=== PATIENT | female | born 1980 | race American Indian/Alaskan Native ===

== ENCOUNTER 2016-12-29 04:53 | Inpatient (IN) | payer MEDICAID ==
[2016-12-29] MEDS ORDERED: LACTATED RINGERS 1,000 ML IV SCH (07:00)
[2016-12-29] MEDS ORDERED: PITOCin/NS 30 UNIT/500ML 30 UNITS/500 ML BAG IV SCH ×2 (07:00)
[2016-12-29] MEDS ORDERED: PITOCin/NS 20 UNIT/1000ML DRIP 20 UNITS/1,000 ML BAG IV SCH (07:00)
--- NOTE | 2016-12-29 07:14 | History and Physical Report ---
History of Present Illness Date of examination: 12/29/16 Date of admission: 12/29/16 06:55 Chief complaint: 36 yo at 40wk + 4d who came in c/o SROM--she was nitrazine neg but was found to have LUCY of 2 on u/s so admitted for induction due to oligohydramnios at post dates. MBT O pos, Rubella IM, GBS neg History of present illness: Remainder of H&P from [facility] and confirmed today OB Intake Ethnicity: Mormon: NONE Occupation: Container Washer Father of baby: Oz FAJARDO contact #: [phone] Vital Signs Height: 64 in. Weight (lb): 182 BMI: 31.3 Pre- Weight: 170 BP: 102/ 80 mm Hg Ur. Protein: Negative Ur. Glucose: Negative Chief Complaint/Current Status: pt presents c/o missed period, N &V ...................................................................Jhoana Ash July 28, 2016 2:34 PM Last pap 02/2015 WNL per pt...NFerrus Menstrual History Regularity: regular Menses every: 28 days Duration: 5 LMP: 03/2016 LMP reliability: month known LMP character: normal test type: urine test Date: 07/28/2016 BC at conception: none Planned ? no EDC Calculations EDC Confirmation: 12/25/2016 Gestational Age: 18 4/7 weeks Past History : 5 Term Births: 4 Premature Births: 0 Living Children: 4 Para: 4 Mult. Births: 0 Prev : 0 Prev. attempt? 0 Aborta: 0 Elect. Ab: 0 Spont. Ab: 0 Ectopics: 0 # 1 Delivery date: 1998 Weeks Gestation: term labor: no Delivery type: Delivery location: [place] [facility] Sex: Female weight: 6#14 Comments: no complications # 2 Delivery date: 2000 Weeks Gestation: 36 labor: yes Delivery type: Delivery location: [place] Sex: Male weight: 5#6 Comments: PPROM @ 36wks # 3 Delivery date: 2003 Weeks Gestation: term labor: no Delivery type: Delivery location: [place] [facility] Sex: Male weight: 7#4 Comments: no complications # 4 Delivery date: 2012 Weeks Gestation: term labor: no Delivery type: Delivery location: [facility] [place] Sex: Male weight: 6#8 Comments: no complications Past Medical History: Abnormal Pap Smear - HPV, several years ago - unsure of exact year Asthma - managed by ED when she has attack Past Surgical History: Appendectomy - 3rd grade Past Medical History Surgery (Non-ob gyn physician assistant): Appendectomy - 3rd grade Abnormal PAP: positive, +HPV JAVIER Exposure: negative Infertility: negative Uterine Anomaly: negative Uterine Surgery (not C/S): negative Other Gynecologic Problems: negative Family Hx: Mother and MGM - htn no known family hx [place] Social Hx: single Works as power project manager at [employer] No ETOH/Drugs/Smoking Infection History Hx of STD: HPV HIV Risk Eval: no Hepatitis B Risk Eval: low risk Personal hx. of genital herpes: no Partner hx. of genital herpes: no Rash, Viral, or Febrile illness since last LMP? no Varicella/Chicken Pox Status: Previous Disease Genetic History Congenital Heart Defect: Mom: no Dad: no Rubio Disease: Mom: no Dad: no Thalassemia Mom: no Dad: no Neural Tube Defect Mom: no Dad: no Down's Syndrome Mom: no Dad: no Robby-Sachs Mom: no Dad: no Sickle Cell Disease/Trait Mom: no Dad: no Hemophilia Mom: no Dad: no Muscular Dystrophy Mom: no Dad: no Cystic Fibrosis Mom: no Dad: no [place] Chorea Mom: no Dad: no Mental Retardation Mom: no Dad: no Fragile X Mom: no Dad: no Other Genetic/Chromosomal Disorder Mom: no Dad: no Child w/other defect Mom: no Dad: no Enviromental Exposures Xray Exposure: no Medication, drug, or alcohol use since LMP: no Chemical/Other Exposure: no Exposure to Cat Liter: no Hx of Parvovirus (Fifth Disease): no Occupational Exposure to Children: none Current Allergies (reviewed today): No known allergies Laboratory Results Routine Urinalysis Leukocytes: negative Nitrite: negative Urobilinogen: negative Protein: Negative Blood: negative Ketone: negative Bilirubin: negative Glucose: Negative Urine HCG: positive Review of Systems General Denies fever, chills, sweats, anorexia, fatigue, weakness, malaise, weight loss and sleep disorder. Denies nausea, vomiting, headache, swelling of legs, abdominal pain, vaginal discharge, vaginal bleeding and contractions. Denies vaginal discharge, incontinence, dysuria, hematuria, urinary frequency, amenorrhea, menorrhagia, abnormal vaginal bleeding, pelvic pain, genital sores, decreased libido, painful periods, painful sex, urinary urgency, hot flashes, vaginal dryness, vaginal itching and vaginal odor. CV Denies chest pains, palpitations, syncope, dyspnea on exertion, orthopnea, PND and peripheral edema. Resp Denies cough, dyspnea at rest, excessive sputum, hemoptysis, wheezing and pleurisy. GI Denies nausea, vomiting, diarrhea, constipation, change in bowel habits, abdominal pain, melena, hematochezia, jaundice, gas/bloating, indigestion/ heartburn, dysphagia and odynophagia. Endo Denies cold intolerance, heat intolerance, polydipsia, polyphagia, polyuria and unusual weight change. Breast Denies left breast lump, right breast lump, nipple discharge, bloody discharge from nipple, breast pain, abnormal mammogram and breast enlargement. MS Denies back pain, joint pain, joint swelling, muscle cramps, muscle weakness, stiffness, arthritis, sciatica, restless legs, leg pain at night and leg pain with exertion. Derm Denies rash, itching, dryness and suspicious lesions. Neuro Denies paralysis, paresthesias, headache, seizures, tremors, vertigo, transient blindness, frequent falls, frequent headaches and difficulty walking. Psych Denies depression, anxiety, irritability and mood swings. Eyes Denies blurring, diplopia, irritation, discharge, vision loss, eye pain and photophobia. ENT Denies earache, ear discharge, tinnitus, decreased hearing, nasal congestion, nosebleeds, sore throat and hoarseness. Allergy Denies urticaria, allergic rash, hay fever and recurrent infections. Heme Denies abnormal bruising, bleeding and enlarged lymph nodes. 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 Vulva/Vagina: No lesions, normal BUS, normal rugae Cervix: No lesions; no cervical motion tenderness Uterus: normal size and position, midline, mobile Fundal Ht: 18wks FHT: + activity: + Adnexae: no masses or tenderness Rectovaginal: no masses or tenderness Flowsheet View for Follow-up Visit Estimated weeks of gestation: 18 4/7 Weight: 182 Blood pressure: 102 / 80 Urine protein: Negative Urine glucose: Negative Urine nitrite: negative Fundal height: 18wks FHR: + Risk Factors: Smoked Tobacco Use: Never smoker Passive smoke exposure: no Drug use: no HIV high-risk behavior: no Caffeine use: 0 drinks per day Alcohol use: no Exercise: no Seatbelt use: preg-primary substance abuse counselor % Family History Risk Factors: Family History of OK in females < 65 years old: no Family History of OK in males < 55 years old: no Dietary Counseling: pn yes Past History - Obstetrical History : 6 Medications and Allergies Allergies Allergy/AdvReac Type Severity Reaction Status Date / Time No Known Allergies Allergy Unverified 12/29/16 05:22 Active Meds: Active Medications Butorphanol Tartrate (Stadol) 2 mg IV Q2H PRN PRN Reason: Pain , Severe (7-10) Ephedrine Sulfate (Ephedrine Sulfate) 10 mg IV Q2M PRN PRN Reason: Hypotension Stop: 12/29/16 07:03 Fentanyl (Sublimaze) 100 mcg IV Q2H PRN PRN Reason: Labor Pain Lactated Ringer's (Lactated Ringers) 1,000 mls @ 125 mls/hr IV DIRECT NAJMA Oxytocin/Sodium Chloride (Pitocin/Ns 20 Unit/1000ml Drip) 20 units in 1,000 mls @ 125 mls/hr IV DIRECT NAJMA Oxytocin/Sodium Chloride (Pitocin/Ns 30 Unit/500ml) 30 units in 500 mls @ 1 mls /hr IV TITR NAJMA; 1 MILLIUNITS/MIN PRN Reason: Protocol Oxytocin/Sodium Chloride (Pitocin/Ns 30 Unit/500ml) 30 units in 500 mls @ 0 mls /hr IV TITR NAJMA; Per Protocol PRN Reason: Protocol Lidocaine (Xylocaine 2%) 20 ml INFILTRATI ONCE ONE Stop: 12/29/16 06:59 Mineral Oil (Mineral Oil) 30 ml PO QHS PRN PRN Reason: Constipation Naloxone HCl (Narcan 0.4 Mg/1 Ml) 0.1 mg IV Q2MIN PRN PRN Reason: Res Rate </= 8 or 02 SAT < 92% Ondansetron HCl (Zofran) 4 mg IV Q8H PRN PRN Reason: Nausea And Vomiting Terbutaline Sulfate (Brethine) 0.25 mg SUB-Q ONCE PRN PRN Reason: Hyperstimulation/Hypertonicity Stop: 12/29/16 06:59 Terbutaline Sulfate (Brethine) 0.25 mg IVP ONCE PRN PRN Reason: Hyperstimulation/Hypertonicity Stop: 12/29/16 06:59 - Vital Signs Vital signs: Vital Signs Pulse BP 85 120/85 12/29/16 05:10 12/29/16 05:10 Temp Pulse Resp BP Pulse Ox 97.8 F 78 18 118/84 12/29/16 06:20 12/29/16 07:09 12/29/16 06:20 12/29/16 07:09 Results All other labs normal.
[2016-12-29] MEDS ORDERED: SUBLIMAZE IV PRN (07:30)
[2016-12-29] MEDS ORDERED: STADOL IV PRN (07:30)
[2016-12-29] MEDS ORDERED: MINERAL OIL PO PRN (07:30)
--- NOTE | 2016-12-29 07:48 | Ultrasound Report ---
History: LUCY and EFW Findings: Gestation: Single Position: Cephalic Amniotic Fluid: LUCY = 2.7 cm Placenta: Fundal Placental Grade: 2 Heart Rate: 135 BPM Cervical length: 2.8 cm (Normal > 3 cm) Anatomic survey not done. BPD: 8.4 cm = 34 w 0 d HC: 31.3 cm = 35 w 1 d AC: 29.9 cm = 34 w 0 d FL: 7.2 cm = 37 w 0 d HC/AC Ratio: 1.05 Cephalic Index: 80 Estimated Weight: 2550 grams LMP: 03/20/16 Clinical age = 40 w 4 d EDC: 12/25/16 US Gest. Age = 35 w 0 d EDC: 02/02/17
[2016-12-29] MEDS ORDERED: BRETHINE IVP PRN (08:00)
[2016-12-29] MEDS ORDERED: ZOFRAN IV PRN (08:00)
[2016-12-29] MEDS ORDERED: NARCAN 0.4 MG/1 ML IV PRN (08:00)
[2016-12-29] MEDS ORDERED: BRETHINE SUB-Q PRN (08:00)
[2016-12-29] MEDS ORDERED: ePHEDrine SULFATE IV PRN ×2 (08:00→10:30)
[2016-12-29 08:02] LABS: Hematocrit 34.9 % (30.3-42.9); Hemoglobin 11.6 gm/dl (10.1-14.3); Mean Corpuscular HGB Conc 33 % (30-34); Mean Corpuscular Hemoglobin 29 pg (28-32); Mean Corpuscular Volume 88 fl (79-97); Platelet Count 146 K/mm3 (140-440); Red Blood Count 3.95 M/mm3 (3.65-5.03); Red Cell Distribution Width 15.1 % (13.2-15.2); White Blood Count 7.3 K/mm3 (4.5-11.0)
[2016-12-29] MEDS ORDERED: XYLOCAINE 2% INFILTRATI ONE (09:00)
--- NOTE | 2016-12-29 10:05 | Anesthesia Consultation ---
Anesthesia Consult and Med Hx Date of service: 12/29/16 - Airway Anesthetic Teeth Evaluation: Good ROM Head & Neck: Adequate Mental/Hyoid Distance: Adequate Mallampati Class: Class II Intubation Access Assessment: Probably Good - Pre-Operative Health Status ASA Pre-Surgery Classification: ASA2, Emergency Proposed Anesthetic Plan: Epidural, Spinal - Pulmonary Hx Asthma: Yes COPD: No Hx Pneumonia: No - Cardiovascular System Hx Hypertension: No - Central Nervous System Hx Seizures: No Hx Psychiatric Problems: No - Endocrine Hx Renal Disease: No Hx End Stage Renal Disease: No Hx Hypothyroidism: No Hx Hyperthyroidism: No - Hematic Hx Anemia: No Hx Sickle Cell Disease: No - Other Systems Hx Alcohol Use: No
[2016-12-29] MEDS ORDERED: NARCAN 2 MG/2 ML IV PRN (10:30)
[2016-12-29] MEDS ORDERED: fentaNYL-BUPIV 2 MCG/ML-0.125% 200 MCG/100 ML BAG EPIDURAL SCH (11:00)
[2016-12-29] MEDS ORDERED: TYLENOL PO PRN (12:57)
[2016-12-29] MEDS ORDERED: DULCOLAX PR PRN (12:57)
[2016-12-29] MEDS ORDERED: TUCKS PAD TP PRN (12:57)
[2016-12-29] MEDS ORDERED: MILK OF MAGNESIA PO PRN (12:57)
[2016-12-29] MEDS ORDERED: LANSINOH TP PRN (12:57)
[2016-12-29] MEDS ORDERED: PHENERGAN PO PRN (12:57)
[2016-12-29] MEDS ORDERED: BENADRYL PO PRN (12:57)
[2016-12-29] MEDS ORDERED: SODIUM CHLORIDE FLUSH SYRINGE 10 ML IV SCH (13:00)
--- NOTE | 2016-12-29 13:03 | Procedure Note ---
OB Delivery Note - Delivery Date of Delivery: 12/29/16 [employer] T[employer]: RADHA GOETZ Estimated blood loss: 300cc - Vaginal Delivery presentation: vertex Delivery position: OA Delivery induction: none Delivery augmentation: pitocin Delivery monitor: external FHT, external uterine Route of delivery: Delivery placenta: spontaneous Delivery cord: 3 umbilical vessels Episiotomy: none Delivery laceration: none Anesthesia: epidural Delivery comments: live born female over intact perineum Baby skin to skin Cord blood obtained Placenta and membrane del complete and intact, 3 vessel cord. 8/9 , EBL 300, Wgt 5-13 Pit IVFs Mom and baby remain LDR stable. - Infant A at 1 minute: 6 at 5 minutes: 9 Gender: Female (wgt 5-13)
[2016-12-29] MEDS: MOTRIN PO SCH ×2 (15:02→22:14)
[2016-12-29] MEDS: NORCO 5/325 PO PRN ×2 (16:36→22:14)
[2016-12-29] MEDS: COLACE PO SCH (22:14)
[2016-12-30 00:36] LABS: Hematocrit 35.4 % (30.3-42.9)
[2016-12-30] MEDS: MOTRIN PO SCH ×3 (04:33→13:09)
[2016-12-30] MEDS: NORCO 5/325 PO PRN (04:33)
[2016-12-30] MEDS ORDERED: BOOSTRIX IM ONE (06:00)
--- NOTE | 2016-12-30 06:02 | Discharge Summary ---
Providers - Providers Date of Admission: 12/29/16 06:55 Date of discharge: 12/30/16 (pt desires d/c today) Attending physician: AIMEE RIOS Primary care physician: AIMEE RIOS Hospitalization Reason for admission: active labor Delivery: Episiotomy: none Laceration: none Incision: normal Other procedures: none complications: none Discharge diagnosis: IUP at term delivered [place] baby: female Hospital course: uncomplicated vaginal delivery Pt w/o complaint VSS FF below umb Lochia small Perineum intact H&H stable Doing well s/p vag delivery P: d/c today with instructions RTO 4 weeks PP care. Condition at discharge: Good Disposition: DC-01 TO HOME OR SELFCARE - Discharge Diagnoses (1) Spontaneous vaginal delivery Status: Acute Comment: rto 4 weeks PP care Plan - Provider Discharge Summary Activity: routine, no sex for 6 weeks, no heavy lifting 4 weeks, no strenuous exercise Diet: routine Instructions: routine Additional instructions: [] Smoking cessation referral if applicable(refer to patient education folder for contact #) [] Refer to [facility] Booklet Call your doctor immediately for: * Fever > 100.5 * Heavy vaginal bleeding ( >1 pad per hour) * Severe persistent headache * Shortness of breath * Reddened, hot, painful area to leg or breast * Drainage or odor from incision. * Keep incision clean and dry at all times and follow doctor's instructions regarding bathing/showering - Follow up plan Follow up: AIMEE RIOS MD [Primary Care Provider] - 01/28/17 (Congratulations! please call [phone] to schedule your visit in 4 weeks. Take medications as prescribed. Call with concerns.)
[2016-12-30] MEDS ORDERED: PRENATAL VITAMIN PO SCH (10:00)
[2016-12-30] MEDS: COLACE PO SCH (10:43)
[2016-12-30] MEDS ORDERED: Fluarix Quad 2017-2018(36 MOS+ IM ONE (12:00)
[2016-12-30] MEDS ORDERED: M-M-R II VACCINE SUB-Q ONE (12:57)
[2016-12-30 18:37] VITALS: BP 125/88
== END 2016-12-30 17:15 | disposition home or self-care (01) | DRG 775 ==
LOC: TRG 04:53 → LD 06:55 → TRG 06:55 → OB 14:24
PROVIDERS: ADMIT Obstetrics & Gynecology; ATTEND Obstetrics & Gynecology
PROC: 10E0XZZ Delivery of Products of Conception, External Approach (ICD-10-PCS; principal; 2016-12-29)
PROC: 3E0R3BZ Introduction of Anesthetic Agent into Spinal Canal, Percutaneous Approach (ICD-10-PCS; 2016-12-29)
PROC: 00HU33Z Insertion of Infusion Device into Spinal Canal, Percutaneous Approach (ICD-10-PCS; 2016-12-29)
PROC: 3E0234Z Introduction of Serum, Toxoid and Vaccine into Muscle, Percutaneous Approach (ICD-10-PCS; 2016-12-30)
DX: O41.03X0 Oligohydramnios, third trimester, not applicable or unspecified (principal); O99.52 Diseases of the respiratory system complicating childbirth; J45.909 Unspecified asthma, uncomplicated; O48.0 Post-term pregnancy; Z3A.40 40 weeks gestation of pregnancy; Z37.0 Single live birth; Z82.49 Family history of ischemic heart disease and other diseases of the circulatory system; Z23 Encounter for immunization
CPT/HCPCS: 36415; 76816; 85014; 85018; 85027; 86592; 86850; 86900; 86901; 90471; 90686; 90715; 99211; G0008; G0463; J2405; J2590; J7120